=== PATIENT | female | born 1965 ===

== ENCOUNTER → 2023-12-04 07:27 | Outpatient (REF) | payer BC, SELFPAY | LOC: DHCBC/DCA 07:27 | PROVIDERS: ATTENDING PHYSICIAN Internal Medicine Cardiovascular Disease; FAMILY PHYSICIAN Family Medicine | DX: R07.9 Chest pain, unspecified (principal) | CPT/HCPCS: 78452; 93017; A9500 ==

== ENCOUNTER → 2024-01-04 08:51 | Outpatient (REF) | payer BC, SELFPAY | LOC: HWRCS 08:51 | PROVIDERS: ATTENDING PHYSICIAN Internal Medicine Cardiovascular Disease; FAMILY PHYSICIAN Family Medicine | DX: R06.09 Other forms of dyspnea (principal); R55 Syncope and collapse | CPT/HCPCS: 93306 ==